=== PATIENT | female | born 1985 | race Caucasian/White ===

== ENCOUNTER → 2016-11-22 | Outpatient (REF) ==
[~2016-11-22] MED LIST: CEPHALEXIN500 M1 PO; MULTIVITAMIN1 CTB; NO HOME MEDICATIONS; ORTHO TRI-CYCLE1 TAB PO; PERCOCET 325 MG1 TA2 PO; PRIL40 PO; ULTRAM 50MG TAB50 MG PO; VICODIN 5/5001 UDTAB PO; ZOFRAN ODT4 MG PO; ZOFRAN4 M1 PO; ZOFRAN8 MG PO
== END ==
LOC: WSOH 08:44
DX: Z02.89 Encounter for other administrative examinations (principal)

== ENCOUNTER → 2016-11-22 | Outpatient (REF) | LOC: WSOH 08:35 | DX: Z02.89 Encounter for other administrative examinations (principal) ==

== ENCOUNTER 2017-05-04 07:40 | Inpatient (IN) | payer OTHER ==
[~2017-05-04] VITALS: Ht 167.6 cm; Wt 84.1 kg
[2017-05-04] VITALS (10 sets, daily range): BP systolic 107–129; BP diastolic 61–72; PULSE 72–102; TEMP 98.5
[2017-05-04 20:35] LABS: BASO # 0.1 (0.0-0.2); BASO % 0.6 % (0.0-2.0); EOS # 0.1 (0.0-0.7); EOS % 1.2 % (0-4.0); GRAN # 7.7 (1.4-6.5); GRAN % 75.6 % (42.2-75.2); HEMATOCRIT 37.1 % (37.0-47.0); HEMOGLOBIN 12.7 g/dl (12.5-16.0); LYMPH # 1.5 (1.2-3.4); LYMPH % 14.9 % (20.0-51.0); MEAN CELL VOLUME 90 fl (80.0-100.0); MEAN CORPUSCULAR HEMOGLOBIN 31 pg (27.0-31.0); MEAN CORPUSCULAR HGB CONC 34 g/dl (33.0-37.0); MEAN PLATELET VOLUME 11.2 fl (7.4-10.4); MONO # 0.8 (0.1-0.6); MONO % 7.4 % (1.7-9.3); PLATELET COUNT 222 K/mm3 (130-400); RED BLOOD COUNT 4.12 M/mm3 (4.10-5.30); WHITE BLOOD COUNT 10.1 K/mm3 (4.8-10.8)
[2017-05-05] VITALS (72 sets, daily range): BP systolic 92–130; BP diastolic 51–88; PULSE 61–112; TEMP 97.7–98.7
[2017-05-06] VITALS (30 sets, daily range): BP systolic 96–129; BP diastolic 52–84; PULSE 65–111; TEMP 97.5–98.6
[2017-05-06] MEDS ORDERED: IBU600 MG PO (04:57)
[2017-05-06] MEDS ORDERED: PERCOCET 325 MG1 TA2 PO (04:58)
[2017-05-07 01:00] VITALS: BP 118/67; PULSE 88; TEMP 97.7
[2017-05-07 09:15] VITALS: BP 127/57; PULSE 87; TEMP 97.7
[2017-05-07 16:30] VITALS: BP 125/80; PULSE 90
== END 2017-05-07 18:31 | disposition home or self-care (01) | DRG 775 ==
LOC: LDR → OB 19:18 → LDR 19:18 → OB 05-06 07:00
PROVIDERS: Obstetrics & Gynecology
PROC: 10E0XZZ Delivery of Products of Conception, External Approach (ICD-10-PCS; principal; 2017-05-04)
PROC: 0KQM0ZZ Repair Perineum Muscle, Open Approach (ICD-10-PCS; 2017-05-04)
DX: O75.89 Other specified complications of labor and delivery (principal); O48.0 Post-term pregnancy; O70.1 Second degree perineal laceration during delivery; O69.82X0 Labor and delivery complicated by other cord entanglement, without compression, not applicable or unspecified; O76 Abnormality in fetal heart rate and rhythm complicating labor and delivery; Z3A.40 40 weeks gestation of pregnancy; Z37.0 Single live birth
CPT/HCPCS: J2405; J2590; J7120

== ENCOUNTER 2020-10-16 07:52 | Emergency (ER) | payer OTHER ==
[~2020-10-16] VITALS: Ht 167.6 cm; Wt 70.5 kg
[~2020-10-16 07:52] MED LIST changes: +IBU600 MG PO
[2020-10-16 07:59] VITALS: TEMP 97.5
[2020-10-16 08:17] LABS: COLLECTION METHOD CLEAN CATCH
[2020-10-16 08:22] LABS: MUCOUS Present /lpf; PH 5 (5-8); SQUAMOUS EPITHELIAL 0-2 /hpf; URINE APPEARANCE Hazy; URINE BACTERIA None Seen /hpf; URINE BILIRUBIN Negative (NEGATIVE); URINE BLOOD Negative (NEGATIVE); URINE COLOR Yellow; URINE GLUCOSE Negative (NEGATIVE); URINE KETONE 1+ (NEGATIVE); URINE LEUKOCYTE ESTERASE Negative (NEGATIVE); URINE NITRATE Negative (NEGATIVE); URINE PROTEIN(semi-quant) 1+ (NEGATIVE); URINE RBC 0-2 /hpf; URINE UROBILINOGEN >=4.0 mg/dL (NEGATIVE)
[2020-10-16 08:38] LABS: BASO % 0.5 % (0.0-2.0); EOS # 0.1 (0.0-0.7); EOS % 1.2 % (0-4.0); GRAN # 5.7 (1.4-6.5); HEMOGLOBIN 10.4 g/dl (12.5-16.0); LYMPH # 1.6 (1.2-3.4); LYMPH % 20.5 % (20.0-51.0); MEAN CELL VOLUME 92 fl (80.0-100.0); MEAN CORPUSCULAR HEMOGLOBIN 31 pg (27.0-31.0); MEAN CORPUSCULAR HGB CONC 34 g/dl (33.0-37.0); MEAN PLATELET VOLUME 9.1 fl (7.4-10.4); MONO # 0.4 (0.1-0.6); MONO % 4.5 % (1.7-9.3); PLATELET COUNT 225 K/mm3 (130-400); RED BLOOD COUNT 3.36 M/mm3 (4.10-5.30); REDCELL DISTRIBUTION WIDTH-CV 12.4 % (11.5-14.5)
[2020-10-16 08:48] LABS: ALBUMIN 3.5 gm/dL (3.5-5.0); BILIRUBIN,TOTAL 0.7 mg/dL (0.0-1.0); CALCIUM 8.6 mg/dL (8.4-10.2); CREATININE, serum 0.68 (0.52-1.25); TOTAL PROTEIN 6.4 gm/dL (6.4-8.2)
[2020-10-16 11:38] VITALS: BP 116/61; PULSE 71
== END 2020-10-16 11:38 | disposition home or self-care (01) ==
LOC: COL.ER 07:52
PROVIDERS: Emergency Medicine
DX: O21.9 Vomiting of pregnancy, unspecified (principal); O26.891 Other specified pregnancy related conditions, first trimester; R10.11 Right upper quadrant pain; Z88.0 Allergy status to penicillin; Z88.5 Allergy status to narcotic agent; Z3A.01 Less than 8 weeks gestation of pregnancy
CPT/HCPCS: J1885; J2405; J3010; J7030